=== PATIENT | female | born 1955 ===

== ENCOUNTER → 2016-08-22 | Outpatient (CLI) | payer OTHER ==
[2016-08-22 08:51] LABS: ALANINE AMINOTRANSFERASE 24 U/L (9-52); ALBUMIN 4.3 g/dL (3.5-5.0); ALKALINE PHOSPHATASE 92 U/L (38-126); ASPARTATE AMINO TRANSFERASE 19 U/L (14-36); BILIRUBIN,DIRECT 0.2 mg/dL (0.0-0.4); BILIRUBIN,TOTAL 0.4 mg/dL (0.2-1.3); CHOLESTEROL 186.51 mg/dL (0-200); Direct HDL 49 mg/dL (>40); MAGNESIUM 1.9 mg/dL (1.6-2.3); TOTAL PROTEIN 7.5 g/dL (6.3-8.2); TRIGLYCERIDES 140 mg/dL (<150)
[2016-08-22 09:03] LABS: DIRECT LDL 103 mg/dL (<100)
[2016-08-22 13:26] LABS: ADD ON TESTING BLD IN LAB ACKNOWLEDGE
[2016-08-22 13:55] LABS: URIC ACID 3.2 mg/dL (2.5-7.5)
[2016-08-22 13:56] LABS: ANION GAP 16 (5-19); BLOOD UREA NITROGEN 17 mg/dL (7-20); CALCIUM 10.5 mg/dL (8.4-10.2); CARBON DIOXIDE 27 mmol/L (22-30); CHLORIDE 104 mmol/L (98-107); CREATININE RESULT 0.71 mg/dL (0.52-1.25); GLUCOSE 116 mg/dL (75-110); POTASSIUM 4.1 mmol/L (3.6-5.0); SODIUM 146.5 mmol/L (137-145)
== END ==
LOC: OD 07:44
PROVIDERS: ATTEND Internal Medicine Cardiovascular Disease
DX: Z51.81 Encounter for therapeutic drug level monitoring (principal); Z79.899 Other long term (current) drug therapy; E78.2 Mixed hyperlipidemia
CPT/HCPCS: 36415; 80048; 80061; 80076; 83735; 84550